=== PATIENT | male | born 1950 | race Caucasian/White ===

== ENCOUNTER → 2021-03-11 | Outpatient (REF) | payer MEDICARE, OTHER | LOC: M SFHCCLAY 14:53 | PROVIDERS: ATTEND Family Medicine | DX: C44.712 Basal cell carcinoma of skin of right lower limb, including hip (principal) | CPT/HCPCS: 11104; 88305; G0463 ==

== ENCOUNTER → 2021-12-18 | Outpatient (REF) | payer MEDICARE, OTHER | LOC: M SFHCCLAY 13:55 | PROVIDERS: ATTEND Nurse Practitioner Family | DX: R97.20 Elevated prostate specific antigen [PSA] (principal) ==

== ENCOUNTER → 2021-12-20 | Outpatient (CLI) | payer MEDICARE, OTHER | LOC: M PLALAB 14:44 | PROVIDERS: ATTEND Nurse Practitioner Women's Health | DX: R97.20 Elevated prostate specific antigen [PSA] (principal) ==